=== PATIENT | male | born 1955 | race Caucasian/White ===

== ENCOUNTER 2020-07-31 01:05 | Outpatient (CLI) | payer MEDICARE, OTHER, SELFPAY ==
[2020-07-31] MEDS: Barium Sulfate 60% W/V 355 ML BTL PO (09:36)
--- NOTE | 2020-07-31 09:36 | DI.RAD_ITS ---
EXAM: RF BARIUM ENEMA CLINICAL HISTORY: ? SIGMOID ANASTOMOSIS LEAK,PRE REVERSAL,Z93.9,ARTIFICAL OPENING STATUS COMPARISON: No exams were available for comparison TECHNIQUE: 2D and realtime digital imaging was performed. CONTRAST MATERIAL: Single contrast barium enema was performed. FINDINGS: This patient has an ileostomy. This study is to study the sigmoid anastomosis to determine if there is any leakage. Single contrast barium was introduced and rapidly traversed the length of the colon to the level of t he appendix. A few diverticuli are noted in the ascending-right side of colon and hepatic flexure. Although not visible during actual fluoroscopy, upon review of the fluoroscopic images following the procedure, there is a subtle suggestion of a subtle leak at the level of what is probably the anastom osis in the pelvis. The other possibility is that there is a prominent diverticulum at this level. Also noted slightly to the right of center in the transverse colon is a consistent filling defect on these images which may be significant. IMPRESSION: 1. Subtle leak versus prominent diverticulum in the sigmoid in what appears to be the area of anastom osis. 2. Consistent filling defect in the mid transverse colon, possibly significant. I assume that this pa tient has had recent colonoscopy. 3. Scattered diverticuli noted.
== END 2020-07-31 01:25 ==
PROVIDERS: PCP Surgery; Visit Provider Surgery
DX: K94.19 Other complications of enterostomy (principal); Z93.2 Ileostomy status
CPT/HCPCS: 74270

== ENCOUNTER 2020-08-23 04:31 | Outpatient (CLI) | payer MEDICARE, OTHER, SELFPAY ==
--- NOTE | 2020-08-23 | DI.CT_ITS ---
EXAM: CT ABDOMEN W/PEL WO/W TECHNIQUE: Imaging Protocol: Axial computed tomography images with coronal and sagittal reformatted images were created and reviewed CONTRAST MATERIAL: Intravenous: Omnipaque 350 Contrast volume:s 100 ml Contrast route:IV - Oral: no Rectal: yes COMPARISON: CR,RF RF BARIUM ENEMA from 07/31/2020 CR,RF RF BARIUM ENEMA from 07/31/[address] examinations are available. FINDINGS: Images were performed through the pelvis before oral or rectal contrast. Images were performed from the lung bases through the ischial tuberosities after IV and rectal contrast. The exam is limited du e to residual dense barium seen throughout the colon which creates artifact. ABDOMEN: Lung Bases: Normal where visualized. Liver: Normal density. No measurable mass. 5 centimeter circumscribed rounded lesion is seen directl y been knee the liver. The attenuation is equal to liver and likely represents an aberrant lobe of t he liver. Its blood supply appears to be from a branch of the celiac axis. Gallbladder and biliary tract: No radiodense calculus or dilation. Pancreas: Normal density, no abnormal calcifications or inflammatory process. Spleen: Normal. Small accessory spleens. Kidneys: Normal size, contour and axis. No radiodense stones or obstructive uropathy. No masses seen. Adrenal glands: No masses seen. Abdominal Aorta: Abdominal portion non-dilated. [id number] calcification. Lymph nodes: With in normal limits. Abdominal wall: Right-sided ileostomy. Several loops of distal ileum are located within the ostomy. There is dehiscence of the midline of the anterior abdominal wall. There are small bilateral fatty containing inguinal hernias. PELVIS: Bladder: Nearly empty.. Marked bladder wall thickening. Bowel: There is an anastomosis seen at the sigmoid. There is some high density material within the a bernadette of the anastomosis. There is no difference between pre and post administration of rectal contras t. This may be related to the configuration of the anastomosis. Diverticula are demonstrated. Peritoneal cavity: No ascites, collection or mesenteric inflammatory response. Reproductive organs: Markedly enlarged prostate. Bones: Degenerative changes and scoliosis. No compression fractures, lytic or blastic lesions. Impression: No evidence of anastomotic leak by CT. RADIATION DOSE DELIVERED: 1,467.59mGy.cm Total DLP DATA REPOSITORY: All CT scans at this facility are submitted to the National Radiology Data Registry (NRDR) Dose Index Registry (DIR) with the [employer] ([employer]). RADIATION OPTIMIZATION: All CT scans at this facility use at least one of these dose optimization te chniques: automated exposure control; mA and/or kV adjustment per patient size (includes targeted exa ms where dose is matched to clinical indication); or iterative reconstruction.
[2020-08-23 10:21] LABS: CREATININE 0.9 mg/dL (0.70-1.30)
[2020-08-23] MEDS: Omnipaque 350 MG/ML 100 ML BTL IJ (11:41)
[2020-08-23] MEDS: Normal Saline - Diluent 50 ML VIAL IV (11:45)
[2020-08-23] MEDS: Omnipaque 350 MG/ML 50 ML BTL PO (11:47)
== END 2020-08-23 04:51 ==
PROVIDERS: PCP Surgery; Visit Provider Surgery
DX: Z43.3 Encounter for attention to colostomy (principal)
CPT/HCPCS: 74178; 82565; J3490; Q9967

== ENCOUNTER 2021-07-28 13:42 | Emergency (ER) | payer MEDICARE, OTHER, SELFPAY ==
[2021-07-28 13:53] VITALS: BP 123/74; PULSE 105; RESP 16; TEMP 36.5; O2SAT 96
--- NOTE | 2021-07-28 14:06 | W.ED.GENAD ---
Discharge Plan Disposition Patient Disposition: STILL A PATIENT Condition: Stable Discharge Details Primary Care Provider: Zion Vega ED Provider: Daxa Clifton Home Meds and New Rx's Prescriptions: No Action Xarelto 20 mg tablet 20 mg PO DAILY 0RF Label Comments: TAKE 1 TABLET BY MOUTH EVERY DAY Discharge Data Discharge Date/Time-TO BE ENTERED AT DEPARTURE: 07/28/21 18:48 Medical Decision Making <KALYANI Jimenez - Last Filed: 07/29/21 08:47> This is a 65-year-old male, past medical history of retroperitoneal sarcoma, subsequent multiple abdominal surgeries, presenting for right upper quadrant pain that radiates into his right back for the past week or so not improving with Tylenol or tramadol. While he does have right upper quadrant pain and this very well could be cholecystitis, certainly concern given his cancer history of returning tumor, metastatic disease, atypical chest pain, PE, etc. Plan is to initiate IV access and cardiac work-up including D-dimer. Given it is before 4 PM, I will attempt to obtain a right upper quadrant ultrasound Laboratory values reveal no evidence of leukocytosis. Potassium 4.5, renal function normal. Total bili is elevated at 1.3, AST 94, alk phosphatase of 149, lipase 14. Troponin pending. Urine reveals trace leuk esterase, 3-5 red cells, 5-10 white cells, a culture is indicated D-dimer is 5344. A right upper quadrant ultrasound has been ordered. Given his history of retroperitoneal sarcoma, pain made worse with taking a deep breath, and elevated D-dimer, I will obtain a CTA of the chest as well as a CT of the abdomen and pelvis with IV contrast as well Ultrasound was obtained and I discussed the unfortunate results both with patient and his . Patient is requesting discharge but I explained the importance to him of obtaining CT imaging and then consulting with his oncology team. He is agreeable to awaiting CT imaging. At time of signout to my colleague KALYANI Rain patient is currently in CT, CT was delayed as his line infiltrated. Care transition myself from Sylvester Coon PA-C. Please see his initial note regarding history, presentation and exam. In brief, patient is a pleasant 65-year-old gentleman presenting today with chief complaint of right upper abdominal pain. Patient has history of retroperitoneal mass surgically excised. At the time I assumed care, patient had just completed his ultrasound which was concerning for pancreatic mass with innumerable lesions in his liver. At the time I assumed care, patient had just returned from CT for evaluation of his chest, abdomen, pelvis with concern for possible neoplastic process. Patient requesting discharge. I discussed with the patient what we are waiting for. Particularly as he is been having acute right upper quadrant pain, I advised that he may have pathology warranting emergent evaluation with hematology and oncology. Patient is agreeable to stay. Please see CT report from radiology. CT is concerning for lung nodules, concerning for pancreatic and liver metastasis. Lung metastasis cannot be excluded, minor pericardial effusion. Patient does not sound to be symptomatic associated with this. Patient did have notably enlarged pancreatic head mass which was previously diagnosed in August of last year. However,, they note that it was dramatically increased. Central comedonecrosis is noted. Again, they note innumerable hepatic masses. Minor free fluid in the abdomen and pelvis. Minor edema thickening of the distal esophagus, patient does report that he has a history of acid reflux. Mass-effect on the proximal portal vein, SMV, splenic vein is noted without complete occlusion. I did advise that this mass-effect is certainly quite concerning and may warrant more urgent evaluation with hematology oncology. Will consult with the patient hematology oncology team at [facility]. After allaying these results to the patient, he is requesting discharge. He would prefer to be able to be at home and be with his . He is aware that there is a chance that oncology may want to see him this evening. He is aware that he may return anytime for continued treatment and monitoring. Patient eloped from the department prior to receiving discharge paperwork. However, I did advise that I would happily call him once I hear from hematology oncology and they have been able to review his images. Consulted hematology oncology at [facility], Dr. Rivera. They advised the patient did have a CT scan completed approximately 1 month ago there. Gabi to have their radiology team compare the imaging later today to what was obtained there previously. He advised that he will also recheck to the patient's primary team and let them know about the progression and new symptoms. Advised that overall this is a poor prognosis for the patient. Called and relayed this information to the patient and his . Imaging Data Radiologic Study: Attestation: I personally reviewed and interpreted this imaging study as follows: Imaging: Ultrasound Radiologist's impression: Exam(s) US ABDOMEN LIMITED EXAM: US ABDOMEN LIMITED CLINICAL HISTORY: RUQ TECHNIQUE: Ultrasound abdomen performed using standard protocol. COMPARISON: CR,RF RF BARIUM ENEMA from 07/31/[address] ABDOMEN W/PEL WO/W from 08/23/2020 FINDINGS: There is no ascites evident. There is a large midline mass in upper abdomen measuring approximately 7 x 8 x 9 cm. Probably pancreatic. The pancreas is not discernible is a separate structure from this mass. LIVER: There are numerous hepatic lesions now evident consistent with metastatic disease throughout the liver. GALLBLADDER/BILIARY: There are no gallstones. No gallbladder wall edema nor pericholecystic fluid. The common hepatic duct isnot dilated, measuring 3-4mm at the level of brian hepatis. PANCREAS: As above RIGHT KIDNEY:No evidence of solid mass, calculus, nor hydronephrosis. No cortical cysts evident. IMPRESSION: 1. Large midline mass in the abdomen which is probably pancreatic neoplasm. 2. Innumerable metastatic lesions throughout the liver are evident. 3. There is no ascites. CT chest abdomen pelvis recommended Lab Data Lab results reviewed: Yes I reviewed the patient's lab results. Labs: 07/28/21 14:10 Urine - Reflex from Ua Urine Culture - Pending Laboratory Tests Range/Units 07/28/21 07/28/21 07/28/21 14:10 14:47 14:47 WBC (4.4-10.8) 10^3/uL 7.86 RBC (4.36-5.78) 10^6/uL 5.02 Hgb (13.5-17.5) g/dL 15.0 Hct (40.0-50.0) % 45.4 MCV (80-95) fL 90.4 MCH (27.0-33.0) pg 29.9 MCHC (32.0-36.0) % 33.0 RDW (11.8-14.1) % 13.2 Plt Count (130-400) 10^3/uL 158 MPV (8.0-11.0) fL 9.6 Immature Gran % 0.4 Neutrophils % 86.5 Lymphocytes % 2.9 Monocytes % 9.8 Eosinophils % 0.1 Basophils % 0.3 Nucleated RBC % % 0 Absolute Neutrophils (1.2-6.7) 10^3/uL 6.80 H Absolute Lymphocytes (1.2-3.4) 10^3/uL 0.23 L Absolute Monocytes (0.1-0.8) 10^3/uL 0.77 Absolute Eosinophils (0.0-0.7) 10^3/uL 0.01 Absolute Basophils (0.0-0.2) 10^3/uL 0.02 D-Dimer (<500) ng/mlFEU Sodium (136-145) mmol/L 133 L Potassium (3.5-5.1) mmol/L 4.5 Chloride (98-107) mmol/L 98 Carbon Dioxide (21.0-32.0) mmol/L 25.0 Anion Gap (3-11) mmol/L 10.0 BUN (7-18) mg/dL 17 Creatinine (0.70-1.30) mg/dL 0.9 Estimated GFR/1.73 m2 (mL/min/1.73m2) >= 60.00 Glucose (74-106) mg/dL 113 H Calcium (8.5-10.1) mg/dL 10.1 Magnesium (1.8-2.4) mg/dL 2.0 Total Bilirubin (0.2-1.0) mg/dL 1.3 H AST (15-37) U/L 94 H ALT (16-63) U/L 53 Alkaline Phosphatase (46-116) U/L 749 H Troponin I (<or=60) ng/L < 50 Total Protein (6.4-8.2) g/dL 6.5 Albumin (3.4-5.0) g/dL 2.6 L Lipase (73-393) U/L 14 Urine Color (Yellow) Yellow Urine Clarity (Clear) Clear Urine pH (5-8) 6.0 Ur Specific [place] (1.005-1.025) >= 1.030 H Urine Protein (Negative) mg/dL Trace H Urine Ketones (Negative) mg/dL Negative Urine Blood (Negative) Negative Urine Nitrite (Negative) Negative Urine Bilirubin (Negative) Small H Urine Urobilinogen (Up TO 0.2) EU/dL 2.0 H Ur Leukocyte Esterase (Negative) Trace H Urine RBC (0-2) HPF 3-5 H Urine WBC (0-5) HPF 5-10 Ur Epithelial Cells (Negative) HPF Rare Urine Crystals (Negative) HPF Negative Urine Bacteria (Negative) HPF Few Urine Casts (Negative) LPF Urine Mucus (Negative) Trace Ur Culture Indicated? Yes Urine Glucose (Negative) mg/dL Negative COVID-19 Source Range/Units 07/28/21 07/28/21 14:47 14:48 WBC (4.4-10.8) 10^3/uL RBC (4.36-5.78) 10^6/uL Hgb (13.5-17.5) g/dL Hct (40.0-50.0) % MCV (80-95) fL MCH (27.0-33.0) pg MCHC (32.0-36.0) % RDW (11.8-14.1) % Plt Count (130-400) 10^3/uL MPV (8.0-11.0) fL Immature Gran % Neutrophils % Lymphocytes % Monocytes % Eosinophils % Basophils % Nucleated RBC % % Absolute Neutrophils (1.2-6.7) 10^3/uL Absolute Lymphocytes (1.2-3.4) 10^3/uL Absolute Monocytes (0.1-0.8) 10^3/uL Absolute Eosinophils (0.0-0.7) 10^3/uL Absolute Basophils (0.0-0.2) 10^3/uL D-Dimer (<500) ng/mlFEU 5344 H Sodium (136-145) mmol/L Potassium (3.5-5.1) mmol/L Chloride (98-107) mmol/L Carbon Dioxide (21.0-32.0) mmol/L Anion Gap (3-11) mmol/L BUN (7-18) mg/dL Creatinine (0.70-1.30) mg/dL Estimated GFR/1.73 m2 (mL/min/1.73m2) Glucose (74-106) mg/dL Calcium (8.5-10.1) mg/dL Magnesium (1.8-2.4) mg/dL Total Bilirubin (0.2-1.0) mg/dL AST (15-37) U/L ALT (16-63) U/L Alkaline Phosphatase (46-116) U/L Troponin I (<or=60) ng/L Total Protein (6.4-8.2) g/dL Albumin (3.4-5.0) g/dL Lipase (73-393) U/L Urine Color (Yellow) Urine Clarity (Clear) Urine pH (5-8) Ur Specific [place] (1.005-1.025) Urine Protein (Negative) mg/dL Urine Ketones (Negative) mg/dL Urine Blood (Negative) Urine Nitrite (Negative) Urine Bilirubin (Negative) Urine Urobilinogen (Up TO 0.2) EU/dL Ur Leukocyte Esterase (Negative) Urine RBC (0-2) HPF Urine WBC (0-5) HPF Ur Epithelial Cells (Negative) HPF Urine Crystals (Negative) HPF Urine Bacteria (Negative) HPF Urine Casts (Negative) LPF Urine Mucus (Negative) Ur Culture Indicated? Urine Glucose (Negative) mg/dL COVID-19 Source Nasal/Nares <KALYANI Palomo - Last Filed: 07/29/21 00:06> This is a 65-year-old male, past medical history of retroperitoneal sarcoma, presenting for right upper quadrant pain that radiates into his right back for the past week or so not improving with Tylenol or tramadol. While he does have right upper quadrant pain and this very well could be cholecystitis, certainly concern given his cancer history, atypical chest pain, PE, etc. Plan is to initiate IV access and cardiac work-up including D-dimer. Given it is before 4 PM, I will attempt to obtain a right upper quadrant ultrasound Laboratory values reveal no evidence of leukocytosis. Potassium 4.5, renal function normal. Total bili is elevated at 1.3, AST 94, alk phosphatase of 149, lipase 14. Troponin pending. Urine reveals trace leuk esterase, 3-5 red cells, 5-10 white cells, a culture is indicated D-dimer is 5344. A right upper quadrant ultrasound has been ordered. Given his history of retroperitoneal sarcoma, pain made worse with taking a deep breath, and elevated D-dimer, I will obtain a CTA of the chest as well as a CT of the abdomen and pelvis with IV contrast as well Care transition myself from Sylvester Coon PA-C. Please see his initial note regarding history, presentation and exam. In brief, patient is a pleasant 65-year-old gentleman presenting today with chief complaint of right upper abdominal pain. Patient has history of retroperitoneal mass surgically excised. At the time I assumed care, patient had just completed his ultrasound which was concerning for pancreatic mass with innumerable lesions in his liver. At the time I assumed care, patient had just returned from CT for evaluation of his chest, abdomen, pelvis with concern for possible neoplastic process. Patient requesting discharge. I discussed with the patient what we are waiting for. Particularly as he is been having acute right upper quadrant pain, I advised that he may have pathology warranting emergent evaluation with hematology and oncology. Patient is agreeable to stay. Please see CT report from radiology. CT is concerning for lung nodules, concerning for pancreatic and liver metastasis. Lung metastasis cannot be excluded, minor pericardial effusion. Patient does not sound to be symptomatic associated with this. Patient did have notably enlarged pancreatic head mass which was previously diagnosed in August of last year. However,, they note that it was dramatically increased. Central comedonecrosis is noted. Again, they note innumerable hepatic masses. Minor free fluid in the abdomen and pelvis. Minor edema thickening of the distal esophagus, patient does report that he has a history of acid reflux. Mass-effect on the proximal portal vein, SMV, splenic vein is noted without complete occlusion. I did advise that this mass-effect is certainly quite concerning and may warrant more urgent evaluation with hematology oncology. Will consult with the patient hematology oncology team at [facility]. After allaying these results to the patient, he is requesting discharge. He would prefer to be able to be at home and be with his . He is aware that there is a chance that oncology may want to see him this evening. He is aware that he may return anytime for continued treatment and monitoring. Patient eloped from the department prior to receiving discharge paperwork. However, I did advise that I would happily call him once I hear from hematology oncology and they have been able to review his images. Consulted hematology oncology at [facility], Dr. Rivera. They advised the patient did have a CT scan completed approximately 1 month ago there. Gabi to have their radiology team compare the imaging later today to what was obtained there previously. He advised that he will also recheck to the patient's primary team and let them know about the progression and new symptoms. Advised that overall this is a poor prognosis for the patient. Called and relayed this information to the patient and his . HPI <KALYANI Jimenez - Last Filed: 07/29/21 08:47> General Mode of arrival: ambulatory. Date/Time Provider Initiated Documentation: 07/28/21 13:57. Limitations to Documentation: no limitations. Information obtained by: patient. HPI Narrative: This is a 65-year-old gentleman, past medical history of retroperitoneal sarcoma, subsequently multiple abdominal surgeries, presenting to the ER for what he describes as moderate to severe sharp right quadrant pain that radiates into his back. He does take Xarelto daily. The pain is been present for approximately a week and slowly getting worse. He reports that taking a deep breath makes his symptoms worse. He has been taking Tylenol and tramadol with no relief of his symptoms. He denies any headache, visual changes, neck pain, chest pain, cough, nausea, vomiting, diarrhea, constipation, dysuria or hematuria. Denies numbness, tingling, focal weakness. He denies history of appendectomy or cholecystectomy. He has never experienced pain like this previously. Patient reports having had a normal bowel movement today. Related Data Home Medications Medication Instructions Recorded Confirmed rivaroxaban 20 mg tablet (Xarelto) 20 mg PO DAILY 07/28/21 07/28/21 Allergies Allergy/AdvReac Type Severity Reaction Status Date / Time No Known Allergies Allergy Unverified 07/28/21 13:58 General Stated Complaint: Abd Prob JULIUS: 3 <KALYANI Palomo - Last Filed: 07/29/21 00:06> HPI Narrative: This is a 65-year-old gentleman, past medical history of depression, retroperitoneal sarcoma, subsequently multiple abdominal surgeries, presenting to the ER for what he describes as moderate to severe sharp right quadrant pain that radiates into his back. The pain is been present for approximately a week and slowly getting worse. He reports that taking a deep breath makes his symptoms worse. He has been taking Tylenol and tramadol with no relief of his symptoms. He denies any headache, visual changes, neck pain, chest pain, cough, nausea, vomiting, diarrhea, constipation, dysuria or hematuria. Denies numbness, tingling, focal weakness. He denies history of appendectomy or cholecystectomy. He has never experienced pain like this previously. Patient reports having had a normal bowel movement today. Review of Systems <KALYANI Jimenez - Last Filed: 07/29/21 08:47> Constitutional Constitutional: Denies fatigue, Denies fever(s) and Denies weakness ENT Ears, Nose, Mouth, and Throat: Denies neck pain Cardiovascular Cardiovascular: Denies chest pain and Reports dyspnea Respiratory Respiratory: Denies cough and Reports dyspnea Gastrointestinal Gastrointestinal: Reports abdominal pain, Denies constipation, Denies diarrhea, Denies nausea and Denies vomiting Genitourinary Genitourinary: Denies dysuria Musculoskeletal Musculoskeletal: Reports back pain, Denies neck pain, Denies numbness and Denies tingling Integumentary/Breasts Skin/Breast: Denies rash Neurologic Neurologic: Denies numbness, Denies tingling and Denies weakness Endocrine Endocrine: Denies fatigue Hematologic/Lymphatic Hematologic/Lymphatic: Denies easy bleeding and Denies easy bruising PFSH <KALYANI Jimenez - Last Filed: 07/29/21 08:47> Social History Smoking/Tobacco Use Status: Current every day Tobacco Type: cigarettes Smoking risk assessment performed?: Yes Alcohol Intake: never Drug use: Never Substance use type: does not use Do you feel safe at home: Yes Do you feel safe in your relationship?: Yes Exam <KALYANI Jimenez - Last Filed: 07/29/21 08:47> Const General: cooperative, healthy appearing, comfortable and no acute distress Orientation: alert, awake and oriented x3 HENMT Head: normal to inspection, normocephalic and atraumatic Mouth: moist mucous membranes Eyes General: appearance normal, both eyes and all related structures Conjunctivae: conjunctivae normal Neck Neck: normal visual inspection, trachea midline and supple Chest Chest: normal palpation of entire chest wall Resp Effort & Inspection: normal respiratory effort and able to speak in complete sentences Auscultation: clear to auscultation bilaterally Cardio Rate: regular rate Rhythm: regular rhythm GI Palpation: soft, not firm, no guarding, no pulsatile masses and tender in the RUQ and Thao's sign positive; Negative for with no rebound tenderness Auscultation: normal bowel sounds Back/Spine/Pelvis Back: no CVA tenderness and back tenderness (Right sided lumbar) Skin General skin exam: no rashes or lesions noted Neuro General: patient alert, patient awake, moves all extremities and no focal motor deficits Cognition: normal cognition Speech: speech normal Gait: normal gait Sensory Exam: no sensory deficits noted Extrem General: normal to inspection, full ROM and capillary refill normal Psych Appearance: grossly normal Mental Status: mental status grossly normal Course <KALYANI Jimenez - Last Filed: 07/29/21 08:47> Vital Signs Vital signs: Vital Signs Temperature 36.5 C 07/28/21 13:53 Pulse 105 H 07/28/21 13:53 Respiratory Rate 16 07/28/21 13:53 Blood Pressure 123/74 07/28/21 13:53 Pulse Oximetry 96 07/28/21 13:53 Temperature 36.5 C 07/28/21 13:53 Temperature Source Temporal Artery Scan 07/28/21 13:53 Pulse 105 H 07/28/21 13:53 Respiratory Rate 16 07/28/21 13:53 Respiratory Effort Non-Labored 07/28/21 13:57 Blood Pressure 123/74 07/28/21 13:53 Blood Pressure Position Sitting 07/28/21 13:53 Pulse Oximetry 96 07/28/21 13:53 Oxygen Delivery Method Room Air 07/28/21 13:53 Oxygen Flow Rate 0 07/28/21 13:53 Pain Level 6 07/28/21 14:00 Sign Out <KALYANI Jimenez - Last Filed: 07/29/21 08:47> Sign Out Data: Sign Out Comment: History of retroperitoneal sarcoma with multiple abdominal surgeries. Right upper quadrant pain made worse with taking a deep breath over the past week or so. Total bili 1.3, D-dimer is elevated. Awaiting right upper quadrant ultrasound as well as a CTA of the chest and CT of his abdomen and pelvis with IV contrast Last updated by Benito Coon PA at 07/28/21 15:50
[2021-07-28 14:15] LABS: Bilirubin Small (Negative); Blood Negative (Negative); Clarity Clear (Clear); Glucose Negative (Negative); Ketones Negative (Negative); Leukocyte Esterase Trace (Negative); Nitrite Negative (Negative); Specific Gravity >= 1.030 (1.005-1.025)
--- NOTE | 2021-07-28 14:15 | RT.EKG_ITS ---
APPROVED REPORT Exam: Resting ECG Reason for Exam: RUQ pain Patient Location: E HR:97 bpm ECG Measurements Heart Rate 97 AXIS CA 141 P 25 QRSd 108 QRS 81 QT 335 T 60 QTc 427 Conclusion Sinus rhythm...normal P axis, V-rate 60- 99 normal sinus rhythm, normal axis, non ischemic
[2021-07-28 14:24] LABS: Bacteria Few HPF (Negative); Crystals Negative HPF (Negative); Epithelial Cells Rare HPF (Negative); Mucus Trace (Negative)
[2021-07-28 14:25] LABS: C & S Indicated? Yes
[2021-07-28 14:53] LABS: Source Nasal/Nares
[2021-07-28 15:02] LABS: Abs Immature Grans 0.03 10^3/uL (0.0-0.06); Absolute Basophil Count 0.02 10^3/uL (0.0-0.2); Absolute Eosinophil Count 0.01 10^3/uL (0.0-0.7); Absolute Lymphocyte Count 0.23 10^3/uL (1.2-3.4); Absolute Monocyte Count 0.77 10^3/uL (0.1-0.8); Basophils % 0.3; Eosinophils % 0.1; HCT 45.4 % (40.0-50.0); Immature Grans % 0.4; Lymphocytes % 2.9; MCH 29.9 pg (27.0-33.0); MCV 90.4 fL (80-95); MPV 9.6 fL (8.0-11.0); Monocytes % 9.8; Neutrophils % 86.5; Nucleated RBC 0 %; Platelet Count 158 10^3/uL (130-400); RBC 5.02 10^6/uL (4.36-5.78); RDW 13.2 % (11.8-14.1); RDW-SD 43.8 fL; WBC 7.86 10^3/uL (4.4-10.8)
--- NOTE | 2021-07-28 15:15 | DI.US_ITS ---
Exam(s) US ABDOMEN LIMITED EXAM: US ABDOMEN LIMITED CLINICAL HISTORY: RUQ TECHNIQUE: Ultrasound abdomen performed using standard protocol. COMPARISON: CR,RF RF BARIUM ENEMA from 07/31/[address] ABDOMEN W/PEL WO/W from 08/23/2020 FINDINGS: There is no ascites evident. There is a large midline mass in upper abdomen measuring approximately 7 x 8 x 9 cm. Probably pancre atic. The pancreas is not discernible is a separate structure from this mass. LIVER: There are numerous hepatic lesions now evident consistent with metastatic disease throughout t he liver. GALLBLADDER/BILIARY: There are no gallstones. No gallbladder wall edema nor pericholecystic fluid. The common hepatic duct isnot dilated, measuring 3-4mm at the level of brian hepatis. PANCREAS: As above RIGHT KIDNEY:No evidence of solid mass, calculus, nor hydronephrosis. No cortical cysts evident. IMPRESSION: 1. Large midline mass in the abdomen which is probably pancreatic neoplasm. 2. Innumerable metastatic lesions throughout the liver are evident. 3. There is no ascites. CT chest abdomen pelvis recommended DATA REPOSITORY:
[2021-07-28 15:29] LABS: ALT 53 U/L (16-63); AST 94 U/L (15-37); Albumin 2.6 g/dL (3.4-5.0); Alkaline Phosphatase 749 U/L (46-116); BUN 17 mg/dL (7-18); Bilirubin, Total 1.3 mg/dL (0.2-1.0); CREATININE 0.9 mg/dL (0.70-1.30); Calcium 10.1 mg/dL (8.5-10.1); Chloride 98 mmol/L (98-107); Glucose 113 mg/dL (74-106); Lipase 14 U/L (73-393); Potassium 4.5 mmol/L (3.5-5.1); Sodium 133 mmol/L (136-145); Total Protein 6.5 g/dL (6.4-8.2); Troponin I < 50 ng/L (<or=60)
[2021-07-28 15:34] LABS: D-Dimer 5344 ng/mlFEU (<500)
--- NOTE | 2021-07-28 15:38 | DI.CT_ITS ---
Exam(s) CT CHEST PE ABD PELVIS W EXAM: CT CHEST PE ABD PELVIS W CLINICAL HISTORY: RUQ pain, sob, Hx of CA, dimer over 5000. TECHNIQUE: Imaging Protocol: Axial CT angiography was performed with multi-slice acquisition and m ulti-planar and/or 3D reconstructions. CONTRAST MATERIAL: Intravenous: Omnipaque 350 Contrast volume:100 ml Oral: None COMPARISON: CT CT ABDOMEN W/PEL WO/W from 08/23/2020 FINDINGS: CHEST: PULMONARY ARTERIES: There are no intra-arterial filling defects to suggest the presence of acute pulm onary emboli. LUNGS: There is a 9 x 6 millimeter noncalcified nodule in the posterior aspect of the right upper lob e evident. There is a small 5 millimeter nodule the left upper lobe adjacent to the aortic arch. Th ere is a pleural-based 3 millimeter nodule in the lateral left lower lobe. Also pleural based 7 mill imeter nodule in the superior segment right lower lobe. No focal findings trachea and mainstem bronc hi. There is a small unilateral right-sided pleural effusion.. MEDIASTINUM: There is no hilar nor mediastinal adenopathy. Visualized thyroid unremarkable. CARDIAC: Heart size is normal. Small pericardial effusion noted inferiorly.Caliber of the thoracic a trice is within normal limits. OSSEOUS: No significant osseous lesions.. ABDOMEN: There is small amount of upper abdominal ascites. LIVER: There are innumerable metastatic lesions in both hepatic lobes. These range up to 4 cm size. GALLBLADDER/BILIARY: No obvious calcified gallstones. Some pericholecystic fluid is noted which may be part of the ascites. CBD is not dilated. PANCREAS: There is a huge no Anabel is malignant-appearing mass in the pancreatic head. This measur es 9.3 cm wide by 9 cm AP by 8.5 cm craniocaudal, highly suspicious for malignancy and most probably responsible for the hepatic metastases. This mass compresses the portal vein confluence. The pancre atic duct is not dilated. SPLEEN: Spleen is not enlarged. There are no intrasplenic lesions. Scratch ADRENALS: There are no significant adrenal masses. KIDNEYS:Tiny cyst in the right kidney. No solid renal masses. No calculi. No hydronephrosis.. ABDOMINAL AORTA: Abdominal aorta is not enlarged. LYMPH NODES: No para-aortic adenopathy. ABDOMINAL WALL/GI: Anterior abdominal wall week area. No bowel obstruction. PELVIS: LYMPH NODES: There is no intrapelvic nor inguinal adenopathy. GI: No evidence of appendicitis.No evidence of sigmoid diverticulitis.There has been prior partial si gmoid resection. No leak. No abscess. URINARY BLADDER: Uniform wall thickening. REPRODUCTIVE: Grossly enlarged and heterogeneous prostate. OSSEOUS: No significant osseous lesions. IMPRESSION: 1. No evidence of acute pulmonary emboli nor pulmonary infarction. However, there are pulmonary nodu les described above which are suspicious being metastatic given the findings abdomen. There is a sma ll right pleural effusion. There is no intrathoracic adenopathy. 2. There is a huge malignant-appearing pancreatic head mass which compresses surrounding structures a nd is associated with innumerable metastatic lesions throughout both hepatic lobes. There is a small amount of perihepatic ascites. 3. Enlarged and heterogeneous prostate gland. Thickened bladder wall. No gross bladder distension. 4. No intrapelvic adenopathy. No inguinal adenopathy. 5. No lytic nor blastic osseous lesions identified RADIATION DOSE DELIVERED: 1,371.18mGy.cm Total DLP DATA REPOSITORY: All CT scans at this facility are submitted to the National Radiology Data Registry (NRDR) Dose Index Registry (DIR) with the [employer] (A[employer]). RADIATION OPTIMIZATION: All CT scans at this facility use at least one of these dose optimization te chniques: automated exposure control; mA and/or kV adjustment per patient size (includes targeted exa ms where dose is matched to clinical indication); or iterative reconstruction.
[2021-07-28 15:47] LABS: COVID-19 PCR Negative (Negative)
[2021-07-28] MEDS: Omnipaque 350 MG/ML 100 ML BTL IJ (16:49)
[2021-07-28] MEDS: Normal Saline Flush 10 ML SYR IVP (16:50)
[2021-07-28] MEDS: Normal Saline 1,000 ML 1000 ML IV (16:51)
--- NOTE | 2021-07-28 18:09 | DI.VRAD_ITS ---
PROCEDURE INFORMATION: Exam: CTA Chest With Contrast Exam date and time: 07/28/2021 4:38 PM Age: 65 years old Clinical indication: Other: Ruq pain; Other: SOB; Additional info: H/o cancer TECHNIQUE: Imaging protocol: Computed tomographic angiography of the chest with contrast. 3D rendering (Not supervised by radiologist): MIP and/or 3D reconstructed images were created by the technologist. Radiation optimization: All CT scans at this facility use at least one of these dose optimization techniques: automated exposure control; mA and/or kV adjustment per patient size (includes targeted exams where dose is matched to clinical indication); or iterative reconstruction. Contrast material: OMNIPAQUE 350; Contrast route: INTRAVENOUS (IV); COMPARISON: CT ABDOMEN W/PEL WO/W 08/23/2020 11:19 AM FINDINGS: Tubes, catheters and devices: Right chest Port-A-Cath is noted. This is well positioned. Pulmonary arteries: Pulmonary arteries unremarkable. Aorta: Thoracic aorta is unremarkable in course and caliber. Lungs: Bilateral features of bronchiectasis and emphysematous lung disease. Hyperinflation. Mild bronchiectasis. Left upper lobe posterior mid segment juxtapleural linear scarring. Right upper lobe posterior juxtapleural 8 x 7 mm nonspecific nodule. See series 5, image 222. This is noncalcified. A 2nd nodule is noted in the right middle lobe lateral segment. This is juxtapleural on series 5, image 321 measuring 4 x 3 mm. A 3rd nodule in the apical right lower lobe posteriorly is 8 x 7 mm and noncalcified. See series 5, image 238. A left lower lobe lateral juxtapleural peripheral nodule is 5 x 3 mm on series 5, image 474. No previous imaging for comparison. Pleural spaces: Minor right pleural effusion. Heart: Normal heart size. Minimal pericardial effusion. Lymph nodes: No hilar or mediastinal adenopathy. Bones/joints: Degenerative thoracic spine disease Soft tissues: Unremarkable. IMPRESSION: 1. No acute lung infiltrates. 2. Emphysematous type lung changes. 3. Scattered lung nodular foci as detailed above in a patient with a pancreatic head mass and liver metastases. Possibility of lung metastases cannot be excluded. Follow-up imaging is recommended. 4. Minor pericardial effusion. PROCEDURE INFORMATION: Exam: CT Abdomen And Pelvis With Contrast Exam date and time: 07/28/2021 4:38 PM Age: 65 years old Clinical indication: Other: Ruq pain; Other: SOB; Additional info: H/o cancer TECHNIQUE: Imaging protocol: Computed tomography of the abdomen and pelvis with contrast. Radiation optimization: All CT scans at this facility use at least one of these dose optimization techniques: automated exposure control; mA and/or kV adjustment per patient size (includes targeted exams where dose is matched to clinical indication); or iterative reconstruction. Contrast material: OMNIPAQUE 350; Contrast volume: 100 ml; Contrast route: INTRAVENOUS (IV); COMPARISON: CT ABDOMEN W/PEL WO/W 08/23/2020 11:19 AM FINDINGS: Liver: Innumerable hepatic low-attenuation lesions consistent with diffuse metastatic disease. Gallbladder and bile ducts: The gallbladder is normal in size and shape. No stones or inflammatory changes. Pancreas: Large mass which appears to be arising from the region of the pancreatic head. This is mixed in attenuation with areas of solid and cystic type or necrotic foci. This is 9.4 x 8.6 cm. There is no pancreatic ductal dilatation. Pancreatic tail is unremarkable. Spleen: Minor volume of free fluid in the abdomen perihepatic and perisplenic in location. Adrenal glands: The adrenal glands are normal in size and contour bilaterally. Kidneys and ureters: No acute renal pathology. Medial right renal 5 mm benign-appearing cyst. No further imaging follow-up recommended.The spleen is normal in size, contour and attenuation. Stomach and bowel: Mild circumferential wall thickening of the distal esophagus could represent a mild esophagitis.. Gastric morphology is unremarkable. The gastric pylorus and duodenal sweep are slightly displaced by the mass in the retroperitoneum. No direct invasion or involvement is suggested. There is mild edema of the 1st and 2nd portion the duodenum which may represent can't a secondary effect related to the adjacent neoplasm. This could represent a duodenitis. Small bowel loops are normal in course and caliber. Large bowel is unremarkable. No acute edema. Formed feces. No mass. Appendix: No evidence of appendicitis. Intraperitoneal space: Unremarkable. No free air. No significant fluid collection. Vasculature: Abdominal aorta with atherosclerosis. No aneurysm. Inferior vena cava is unremarkable. Portal vein is displaced by the pancreatic head mass, however, does not appear to be occluded. There is also narrowing or attenuation of the superior mesenteric vein and distal splenic vein due to mass effect. There appears to be arterial tumor vascularity within the region of the pancreatic head mass arising from gastroduodenal and celiac axis vessels. Lymph nodes: Unremarkable. No enlarged lymph nodes. Urinary bladder: Urinary bladder is under distended but shows some regions of wall thickening period in the anterior bladder dome the wall thickness measures up to 9 mm. Recommend correlation with urinalysis. Reproductive: Moderate nonspecific prostatic enlargement. Recommend clinical correlation. Bones/joints: Degenerative lumbar spine disease. No compression fractures or neoplastic features. Soft tissues: Ventral midline abdominal wall hernia containing fat and some bowel without evidence of strangulation. No significant change since prior study. Patient has had previous takedown of a right lower abdominal wall enterostomy.. IMPRESSION: 1. Marked enlargement of a pancreatic head mass which was noted 08/23/2020 on prior study. This has dramatically increased in size and there are areas of central necrosis. 2. Innumerable hepatic metastases which were not evident on prior study. 3. Minor free fluid in the abdomen and pelvis. Predominantly Idalmis hepatic and perisplenic. 4. Minor edema or thickening of the distal esophagus could represent a mild esophagitis. 5. Minor thickening of the duodenal sweep may be a secondary edema related to the adjacent pancreatic head mass. 6. Mass effect upon the proximal portal vein, SMV, and splenic vein confluence without complete occlusion. 7. Prominent ventral abdominal wall hernia without acute features. Stable since prior study. 8. Nonspecific bladder wall thickening. Recommend correlation with urinalysis. 9. Nonspecific prostate enlargement. Recommend correlation with urinalysis. Dictated and Authenticated by: Jose Tyler MD. Ordering:PARMINDER Oliver MD
[2021-07-28 18:17] LABS: Troponin I < 50 ng/L (<or=60)
== END 2021-07-28 18:48 | disposition still patient (30) ==
PROVIDERS: Physician Assistant; Emergency Provider Physician Assistant; PCP Nurse Practitioner Acute Care
DX: R91.8 Other nonspecific abnormal finding of lung field (principal); R16.0 Hepatomegaly, not elsewhere classified; R93.5 Abnormal findings on diagnostic imaging of other abdominal regions, including retroperitoneum; Z20.822 Contact with and (suspected) exposure to COVID-19; R79.1 Abnormal coagulation profile; C48.0 Malignant neoplasm of retroperitoneum; R10.11 Right upper quadrant pain; R06.02 Shortness of breath
CPT/HCPCS: 36415; 71275; 74177; 80053; 83690; 87635; 93005; 99284; 99285; 76705; 81003; 81015; 83735; 84484; 85025; 85379; 87086; 93010; J3490